=== PATIENT | male | born 1930 | race Caucasian/White ===

== ENCOUNTER 2017-06-30 02:49 | Inpatient (IN) | payer MEDICARE, OTHER ==
[2017-06-30] MEDS: ALBUTEROL 0.083% (NEB) 2.5 MG/3 ML AMP INH (02:52)
[2017-06-30] MEDS: IPRATROPIUM (NEB) 0.5 MG/2.5 ML AMP INH (02:52)
[2017-06-30 03:09] LABS: ADD MAN DIFF? NO
[2017-06-30 03:12] LABS: BASOPHILS % 0.2 % (0.0-2.0); EOSINOPHILS % 0.2 % (0.0-7.0); HEMATOCRIT 22.3 % (42.0-52.0); HEMOGLOBIN 7.2 g/dl (14.0-18.0); LYMPHOCYTES # 1.4 10^3/ul (0.8-2.9); LYMPHOCYTES % 7.5 % (15.0-51.0); MEAN CORPUSCULAR HEMOGLOBIN 28.7 pg (29.0-33.0); MEAN CORPUSCULAR HGB CONC 32.3 g/dl (32.0-37.0); MEAN CORPUSCULAR VOLUME 88.8 fl (82.0-101.0); MEAN PLATELET VOLUME 9.8 fl (7.4-10.4); MONOCYTE # 0.8 10^3/ul (0.3-0.9); MONOCYTES % 4.6 % (0.0-11.0); NEUTROPHIL # 15.4 10^3/ul (1.6-7.5); NEUTROPHILS % 85.1 % (39.0-77.0); PLATELET COUNT 185 10^3/UL (140-415); RED BLOOD COUNT 2.51 10^6/ul (4.70-6.10); RED CELL DISTRIBUTION WIDTH 16.7 % (11.5-14.5)
[2017-06-30 03:12] LABS: WHITE BLOOD COUNT 18.1 10^3/ul (4.8-10.8)
[2017-06-30 03:30] LABS: INR 1.05; PROTIME 13.8 Sec (11.9-14.9); PT RATIO 1.1
[2017-06-30 03:33] LABS: ALANINE AMINOTRANSFERASE 22 IU/L (13-69); ALBUMIN/GLOBULIN RATIO 1.21; ALKALINE PHOSPHATASE 68 IU/L (42-121); ANION GAP 19 (8-16); ASPARTATE AMINO TRANSFERASE 24 IU/L (15-46); BILIRUBIN,INDIRECT 0.1 mg/dl (0-1.1); BILIRUBIN,TOTAL 0.1 mg/dl (0.2-1.3); BLOOD UREA NITROGEN 48 mg/dl (7-20); CALCIUM 9.4 mg/dl (8.4-10.2); CARBON DIOXIDE 18 mmol/L (21-31); CHLORIDE 112 mmol/L (97-110); CREATININE 2.48 mg/dl (0.61-1.24); GLUCOSE 119 mg/dl (70-220); POTASSIUM 5.3 mmol/L (3.5-5.1); SODIUM 144 mmol/L (135-144); TOTAL PROTEIN 7.3 g/dl (6.1-8.1)
[2017-06-30 03:40] LABS: LACTIC ACID 1.3 mmol/L (0.5-2.0)
[2017-06-30 03:44] LABS: B-TYPE NATRIURETIC PEPTIDE 28200 PG/ML (0-450); TROPONIN-I 0.024 ng/ml (0.00-0.12)
[2017-06-30] MEDS: FUROSEMIDE 40 MG INJ IV (04:46)
[2017-06-30 05:00] LABS: ADD UMIC YES; UR ASCORBIC ACID NEGATIVE (NEGATIVE); UR BACTERIA FEW /HPF (NONE SEEN); UR BILIRUBIN (Dip) NEGATIVE (NEGATIVE); UR BLOOD (Dip) 3+ mg/dL (NEGATIVE); UR CLARITY SLIGHTLY CLOUDY (CLEAR); UR COLOR RED (YELLOW); UR GLUCOSE (Dip) NEGATIVE (NEGATIVE); UR KETONES (Dip) NEGATIVE (NEGATIVE); UR LEUKOCYTE ESTERASE (Dip) 3+ Leu/ul (NEGATIVE); UR NITRITE (Dip) NEGATIVE (NEGATIVE); UR RBC > 182 /HPF (0-5); UR SPECIFIC GRAVITY (Dip) 1.006 (1.003-1.030); UR TOTAL PROTEIN (Dip) 2+ mg/dl (NEGATIVE); UR UROBILINOGEN (Dip) NEGATIVE (NEGATIVE); UR WBC 127 /HPF (0-5)
[2017-06-30] MEDS ORDERED: LORAZEPAM 2 MG INJ (05:27)
[2017-06-30] MEDS ORDERED: NACL 0.9% 3 ML SYG IV (05:30)
[2017-06-30] MEDS ORDERED: ALBUTEROL/IPRATROPIUM (NEB) 3 ML AMP HHN (05:30)
[2017-06-30] MEDS ORDERED: morphine 2 MG INJ IV (05:30)
[2017-06-30] MEDS ORDERED: ONDANSETRON 4 MG INJ IV (05:30)
[2017-06-30] MEDS ORDERED: ACETAMINOPHEN 325 MG TAB PO (05:30)
[2017-06-30] MEDS ORDERED: NITROGLYCERIN (SL) 0.4 MG TAB SL (05:30)
[2017-06-30] MEDS: LORAZEPAM 2 MG INJ IV (05:43)
[2017-06-30] MEDS: CEFTRIAXONE 1 GM/50 ML (PMX) 50 ML IVPB ×2 (06:00→19:18)
[2017-06-30 06:15] LABS: TROPONIN-I 0.031 ng/ml (0.00-0.12)
[2017-06-30 06:29] LABS: CK-MB 0.83 ng/ml (0.0-2.4); CREATINE KINASE < 20 IU/L (23-200)
[2017-06-30 06:34] LABS: LACTIC ACID 2.9 mmol/L (0.5-2.0)
[2017-06-30 06:57] LABS: AADO2 Arterial 55.4 mmHg (7.0-24.0); Allen Test ACCEPTAB; Arterial Base Excess -7.8 mmol/L (-3.0-3); Arterial Blood Gas Oxygen Sat 90.4 mmHG (95.0-100.0); Arterial COHb 0 % (0.0-3.0); Arterial HCO3 16.2 mmol/L (22.0-26.0); Arterial MetHb 0.4 % (0.0-1.5); Arterial Total Hemglobin 7.9 g/dl (12.0-18.0); Arterial pCO2 27.1 mmhg (35-45); MODE ROOM AIR
[2017-06-30] MEDS: LEVOFLOXACIN 500MG/D5W (PMX) 100 ML IVPB (08:03)
[2017-06-30] MEDS: FUROSEMIDE 20 MG INJ IV ×2 (09:13→21:03)
[2017-06-30] MEDS: HEPARIN 5,000 UNIT/0.5 ML VIAL SC ×2 (09:20→21:00)
[2017-06-30 09:23] LABS: LACTIC ACID 1.5 mmol/L (0.5-2.0)
[2017-06-30 12:50] LABS: CREATINE KINASE < 20 IU/L (23-200)
[2017-06-30 12:52] LABS: LACTIC ACID 1.9 mmol/L (0.5-2.0)
[2017-06-30 13:00] LABS: TROPONIN-I 0.024 ng/ml (0.00-0.12)
[2017-06-30 13:03] LABS: CK-MB 0.67 ng/ml (0.0-2.4)
[2017-06-30 16:04] LABS: RETICULOCYTE COUNT # 0.107 X10^6 (0.020-0.110); RETICULOCYTE COUNT % 4.3 % (0.5-1.5)
[2017-06-30 16:04] LABS: RETICULOCYTE RBC 2.49
[2017-06-30 16:18] LABS: IRON 208 ug/dl (35-150)
[2017-06-30 16:28] LABS: % IRON SATURATION 69 % SAT (22-52); TOTAL IRON BINDING CAPACITY 301 ug/dl (241-421)
[2017-06-30 17:30] LABS: FOLATE > 20.0 ng/ml (2.8-20.0)
[2017-06-30] MEDS: NA BICARBONATE 650 MG TAB PO ×2 (19:22→21:02)
[2017-06-30] MEDS: METOPROLOL 25 MG TAB PO (21:03)
[2017-06-30 23:05] LABS: IMMEDIATE SPIN CROSSMATCH 1 1
[2017-07-01 02:18] LABS: SODIUM,URINE RANDOM 128 mmol/L (30-90)
[2017-07-01 07:51] LABS: AADO2 Arterial 108.5 mmHg (7.0-24.0); Allen Test ACCEPTAB; Arterial Base Excess -0.3 mmol/L (-3.0-3); Arterial Blood Gas Oxygen Sat 93.6 mmHG (95.0-100.0); Arterial COHb 0.1 % (0.0-3.0); Arterial Fraction of Oxyhgb 93.3 % (93.0-99.0); Arterial MetHb 0.2 % (0.0-1.5); Arterial Total Hemglobin 11.6 g/dl (12.0-18.0); Arterial pCO2 33.1 mmhg (35-45); MODE NASAL CANNULA; Site Left Radial
[2017-07-01 08:19] LABS: ADD MAN DIFF? NO
[2017-07-01 08:23] LABS: WHITE BLOOD COUNT 9.7 10^3/ul (4.8-10.8)
[2017-07-01 08:23] LABS: BASOPHIL # 0.1 10^3/ul (0.0-0.1); BASOPHILS % 0.6 % (0.0-2.0); EOSINOPHILS # 0.3 10^3/ul (0.0-0.5); HEMATOCRIT 24.9 % (42.0-52.0); HEMOGLOBIN 8.1 g/dl (14.0-18.0); LYMPHOCYTES # 0.8 10^3/ul (0.8-2.9); LYMPHOCYTES % 8.6 % (15.0-51.0); MEAN CORPUSCULAR HEMOGLOBIN 28.2 pg (29.0-33.0); MEAN CORPUSCULAR HGB CONC 32.5 g/dl (32.0-37.0); MEAN CORPUSCULAR VOLUME 86.8 fl (82.0-101.0); MONOCYTE # 0.6 10^3/ul (0.3-0.9); MONOCYTES % 6.2 % (0.0-11.0); NEUTROPHIL # 7.7 10^3/ul (1.6-7.5); NEUTROPHILS % 79.9 % (39.0-77.0); PLATELET COUNT 180 10^3/UL (140-415); RED BLOOD COUNT 2.87 10^6/ul (4.70-6.10); RED CELL DISTRIBUTION WIDTH 16.2 % (11.5-14.5)
[2017-07-01] MEDS: NA BICARBONATE 650 MG TAB PO (08:26)
[2017-07-01] MEDS: FUROSEMIDE 20 MG INJ IV ×2 (08:27→20:26)
[2017-07-01] MEDS: METOPROLOL 25 MG TAB PO (08:27)
[2017-07-01] MEDS: HEPARIN 5,000 UNIT/0.5 ML VIAL SC ×2 (08:27→20:32)
[2017-07-01 08:59] LABS: ALANINE AMINOTRANSFERASE 24 IU/L (13-69); ALBUMIN 3.4 g/dl (3.3-4.9); ALBUMIN/GLOBULIN RATIO 1.25; ALKALINE PHOSPHATASE 61 IU/L (42-121); ANION GAP 14 (8-16); ASPARTATE AMINO TRANSFERASE 19 IU/L (15-46); BILIRUBIN,INDIRECT 0.4 mg/dl (0-1.1); BILIRUBIN,TOTAL 0.4 mg/dl (0.2-1.3); BLOOD UREA NITROGEN 53 mg/dl (7-20); CALCIUM 8.9 mg/dl (8.4-10.2); CARBON DIOXIDE 26 mmol/L (21-31); CHLORIDE 110 mmol/L (97-110); CHOL/HDL RATIO 2.6 RATIO; CHOLESTEROL 182 mg/dl (100-200); CREATININE 2.19 mg/dl (0.61-1.24); GLUCOSE 94 mg/dl (70-220); HDL CHOLESTEROL 68 mg/dl (31-75); LDL CHOLESTEROL,CALCULATED 85 mg/dl; MAGNESIUM 1.6 mg/dl (1.7-2.5); SODIUM 145 mmol/L (135-144); TOTAL PROTEIN 6.1 g/dl (6.1-8.1); TRIGLYCERIDES 144 mg/dl (0-149)
[2017-07-01 08:59] LABS: TROPONIN-I 0.032 ng/ml (0.00-0.12)
[2017-07-01 09:01] LABS: PHOSPHORUS 3.7 mg/dl (2.5-4.9)
[2017-07-01 09:01] LABS: URIC ACID 8.3 mg/dl (3.1-7.9)
[2017-07-01 09:48] LABS: HEMOGLOBIN A1C 5.5 % (0-5.9)
[2017-07-01] MEDS: MAGNESIUM SULFATE 3 GM in DEXTROSE 5% 100 ML IVPB (10:16)
[2017-07-01] MEDS ORDERED: MAGNESIUM SULFATE 2 GM/50 ML 50 ML IVPB (12:30)
[2017-07-01] MEDS: CEFTRIAXONE 1 GM/50 ML (PMX) 50 ML IVPB (16:28)
[2017-07-01] MEDS: ALLOPURINOL 100 MG TAB PO (17:52)
[2017-07-01] MEDS: METOPROLOL (XL) 25 MG TAB PO (20:25)
[2017-07-02] MEDS: LEVOTHYROXINE 50 MCG TAB PO (05:52)
[2017-07-02 07:27] LABS: ADD MAN DIFF? NO
[2017-07-02 07:29] LABS: ABNORMAL IP MESSAGE 1; BASOPHIL # 0.1 10^3/ul (0.0-0.1); BASOPHILS % 0.7 % (0.0-2.0); EOSINOPHILS # 0.7 10^3/ul (0.0-0.5); EOSINOPHILS % 8.6 % (0.0-7.0); HEMATOCRIT 25.9 % (42.0-52.0); HEMOGLOBIN 8.6 g/dl (14.0-18.0); LYMPHOCYTES # 0.6 10^3/ul (0.8-2.9); LYMPHOCYTES % 7.7 % (15.0-51.0); MEAN CORPUSCULAR HEMOGLOBIN 29.3 pg (29.0-33.0); MEAN CORPUSCULAR HGB CONC 33.2 g/dl (32.0-37.0); MEAN CORPUSCULAR VOLUME 88.1 fl (82.0-101.0); MEAN PLATELET VOLUME 10.8 fl (7.4-10.4); MONOCYTE # 0.6 10^3/ul (0.3-0.9); MONOCYTES % 7.3 % (0.0-11.0); NEUTROPHIL # 5.6 10^3/ul (1.6-7.5); NEUTROPHILS % 73.7 % (39.0-77.0); PLATELET COUNT 144 10^3/UL (140-415); POSITIVE DIFF @See below; RED BLOOD COUNT 2.94 10^6/ul (4.70-6.10); RED CELL DISTRIBUTION WIDTH 16.6 % (11.5-14.5)
[2017-07-02 07:29] LABS: WHITE BLOOD COUNT 7.7 10^3/ul (4.8-10.8)
[2017-07-02 07:53] LABS: ALANINE AMINOTRANSFERASE 23 IU/L (13-69); ALBUMIN 3.5 g/dl (3.3-4.9); ALKALINE PHOSPHATASE 71 IU/L (42-121); ANION GAP 14 (8-16); ASPARTATE AMINO TRANSFERASE 16 IU/L (15-46); BILIRUBIN,INDIRECT 0.1 mg/dl (0-1.1); BILIRUBIN,TOTAL 0.1 mg/dl (0.2-1.3); BLOOD UREA NITROGEN 58 mg/dl (7-20); CALCIUM 8.7 mg/dl (8.4-10.2); CARBON DIOXIDE 27 mmol/L (21-31); CHLORIDE 110 mmol/L (97-110); CREATININE 2.56 mg/dl (0.61-1.24); GLUCOSE 112 mg/dl (70-220); MAGNESIUM 2.6 mg/dl (1.7-2.5); POTASSIUM 4.7 mmol/L (3.5-5.1); SODIUM 146 mmol/L (135-144); TOTAL PROTEIN 6.4 g/dl (6.1-8.1)
[2017-07-02] MEDS: FUROSEMIDE 20 MG INJ IV (08:11)
[2017-07-02] MEDS: ALLOPURINOL 100 MG TAB PO (08:12)
[2017-07-02] MEDS: METOPROLOL (XL) 25 MG TAB PO (08:12)
[2017-07-02] MEDS: HEPARIN 5,000 UNIT/0.5 ML VIAL SC (08:14)
== END 2017-07-02 17:11 | disposition home or self-care (01) | DRG 871 ==
LOC: E/R 02:49 → MS4 04:23
PROC: 30233N1 Transfusion of Nonautologous Red Blood Cells into Peripheral Vein, Percutaneous Approach (ICD-10-PCS; principal; 2017-06-30)
PROC: 5A09357 Assistance with Respiratory Ventilation, Less than 24 Consecutive Hours, Continuous Positive Airway Pressure (ICD-10-PCS; 2017-06-30)
DX: A41.9 Sepsis, unspecified organism (principal); I50.43 Acute on chronic combined systolic (congestive) and diastolic (congestive) heart failure; J18.9 Pneumonia, unspecified organism; J96.01 Acute respiratory failure with hypoxia; I13.0 Hypertensive heart and chronic kidney disease with heart failure and stage 1 through stage 4 chronic kidney disease, or unspecified chronic kidney disease; N39.0 Urinary tract infection, site not specified; E87.2 Acidosis; N17.9 Acute kidney failure, unspecified; E87.0 Hyperosmolality and hypernatremia; N18.9 Chronic kidney disease, unspecified; D63.1 Anemia in chronic kidney disease; I25.10 Atherosclerotic heart disease of native coronary artery without angina pectoris; Z95.1 Presence of aortocoronary bypass graft; J44.9 Chronic obstructive pulmonary disease, unspecified; E87.5 Hyperkalemia; I44.7 Left bundle-branch block, unspecified; Z85.51 Personal history of malignant neoplasm of bladder; E83.42 Hypomagnesemia; E03.9 Hypothyroidism, unspecified; R65.20 Severe sepsis without septic shock
CPT/HCPCS: 36415; 36430; 36600; 71045; 76775; 80053; 80061; 81001; 82550; 82553; 82607; 82746; 82803; 83036; 83540; 83605; 83735; 83880; 84100; 84300; 84443; 84484; 84560; 85025; 85045; 85610; 85730; 86850; 86900; 86901; 86920; 87040; 87086; 89190; 93005; 93306; 94660; 96374; 96375; 99285-25

== ENCOUNTER 2017-10-04 19:33 | Inpatient (IN) | payer MEDICARE, OTHER ==
[2017-10-04 20:11] LABS: ADD MAN DIFF? NO
[2017-10-04] MEDS: ONDANSETRON 4 MG INJ IV (20:11)
[2017-10-04] MEDS: SOD CHLORIDE 0.9% 1,000 ML IV (20:12)
[2017-10-04] MEDS: HYDROmorphONE 1 MG/ML SYG IV (20:12)
[2017-10-04 20:15] LABS: WHITE BLOOD COUNT 12.1 10^3/ul (4.8-10.8)
[2017-10-04 20:15] LABS: BASOPHILS % 0.2 % (0.0-2.0); EOSINOPHILS # 0.4 10^3/ul (0.0-0.5); HEMATOCRIT 24.8 % (42.0-52.0); HEMOGLOBIN 8.4 g/dl (14.0-18.0); IMMATURE GRANS #M 0.14 10^3/ul; IMMATURE GRANS % (M) 1.2 %; LYMPHOCYTES % 16.4 % (15.0-51.0); MEAN CORPUSCULAR HGB CONC 33.9 g/dl (32.0-37.0); MEAN CORPUSCULAR VOLUME 88.6 fl (82.0-101.0); MEAN PLATELET VOLUME 10.2 fl (7.4-10.4); MONOCYTE # 0.9 10^3/ul (0.3-0.9); MONOCYTES % 7.4 % (0.0-11.0); NEUTROPHIL # 8.7 10^3/ul (1.6-7.5); NEUTROPHILS % 71.8 % (39.0-77.0); PLATELET COUNT 161 10^3/UL (140-415); RED CELL DISTRIBUTION WIDTH 14.2 % (11.5-14.5)
[2017-10-04 20:34] LABS: ALANINE AMINOTRANSFERASE 14 IU/L (13-69); ALBUMIN 4.2 g/dl (3.3-4.9); ALKALINE PHOSPHATASE 70 IU/L (42-121); ANION GAP 16 (8-16); ASPARTATE AMINO TRANSFERASE 23 IU/L (15-46); BILIRUBIN,INDIRECT 0.1 mg/dl (0-1.1); BILIRUBIN,TOTAL 0.1 mg/dl (0.2-1.3); BLOOD UREA NITROGEN 45 mg/dl (7-20); CALCIUM 9.2 mg/dl (8.4-10.2); CARBON DIOXIDE 24 mmol/L (21-31); CHLORIDE 91 mmol/L (97-110); CREATININE 2.48 mg/dl (0.61-1.24); GLUCOSE 124 mg/dl (70-220); LIPASE 137 U/L (23-300); SODIUM 126 mmol/L (135-144); TOTAL PROTEIN 7.2 g/dl (6.1-8.1)
[2017-10-04 20:46] LABS: TROPONIN-I 0.025 ng/ml (0.000-0.120)
[2017-10-04] MEDS ORDERED: ONDANSETRON 4 MG INJ IV (22:00)
[2017-10-04] MEDS ORDERED: ACETAMINOPHEN 325 MG TAB PO (22:00)
[2017-10-04] MEDS: FUROSEMIDE 40 MG INJ IV (22:09)
[2017-10-04 22:13] LABS: B-TYPE NATRIURETIC PEPTIDE 27500 PG/ML (0-450)
[2017-10-04 22:14] LABS: ADD UMIC YES; UR ASCORBIC ACID NEGATIVE (NEGATIVE); UR BACTERIA FEW /HPF (NONE SEEN); UR BILIRUBIN (Dip) NEGATIVE (NEGATIVE); UR BLOOD (Dip) 3+ mg/dL (NEGATIVE); UR CLARITY SLIGHTLY CLOUDY (CLEAR); UR COLOR RED (YELLOW); UR GLUCOSE (Dip) NEGATIVE (NEGATIVE); UR KETONES (Dip) NEGATIVE (NEGATIVE); UR LEUKOCYTE ESTERASE (Dip) NEGATIVE Leu/ul (NEGATIVE); UR MUCUS FEW /HPF (NONE SEEN); UR NITRITE (Dip) NEGATIVE (NEGATIVE); UR RBC > 182 /HPF (0-5); UR SPECIFIC GRAVITY (Dip) 1.006 (1.003-1.030); UR TOTAL PROTEIN (Dip) 2+ mg/dl (NEGATIVE); UR UROBILINOGEN (Dip) NEGATIVE (NEGATIVE); UR WBC > 182 /HPF (0-5)
[2017-10-05] MEDS ORDERED: NACL 0.9% 3 ML SYG IV (06:30)
[2017-10-05] MEDS ORDERED: ALBUTEROL/IPRATROPIUM (NEB) 3 ML AMP HHN (06:30)
[2017-10-05] MEDS: HYDROCODONE/APAP (5/325) TAB PO (08:19)
[2017-10-05] MEDS: METOPROLOL (XL) 50 MG TAB PO (09:00)
[2017-10-05] MEDS: LEVOTHYROXINE 50 MCG TAB PO (09:09)
[2017-10-05 10:49] LABS: ADD MAN DIFF? NO
[2017-10-05 10:51] LABS: BASOPHILS % 0.3 % (0.0-2.0); EOSINOPHILS # 0.1 10^3/ul (0.0-0.5); EOSINOPHILS % 0.4 % (0.0-7.0); HEMATOCRIT 23.9 % (42.0-52.0); HEMOGLOBIN 8.1 g/dl (14.0-18.0); IMMATURE GRANS #M 0.12 10^3/ul; IMMATURE GRANS % (M) 0.9 %; LYMPHOCYTES # 0.7 10^3/ul (0.8-2.9); LYMPHOCYTES % 4.8 % (15.0-51.0); MEAN CORPUSCULAR HEMOGLOBIN 30.3 pg (29.0-33.0); MEAN CORPUSCULAR HGB CONC 33.9 g/dl (32.0-37.0); MEAN CORPUSCULAR VOLUME 89.5 fl (82.0-101.0); MONOCYTE # 0.8 10^3/ul (0.3-0.9); NEUTROPHILS % 87.6 % (39.0-77.0); PLATELET COUNT 131 10^3/UL (140-415); RED BLOOD COUNT 2.67 10^6/ul (4.70-6.10)
[2017-10-05 10:51] LABS: WHITE BLOOD COUNT 13.7 10^3/ul (4.8-10.8)
[2017-10-05 11:10] LABS: ALANINE AMINOTRANSFERASE 20 IU/L (13-69); ALBUMIN 3.7 g/dl (3.3-4.9); ALBUMIN/GLOBULIN RATIO 1.23; ALKALINE PHOSPHATASE 63 IU/L (42-121); ANION GAP 16 (8-16); ASPARTATE AMINO TRANSFERASE 20 IU/L (15-46); BILIRUBIN,INDIRECT 0.4 mg/dl (0-1.1); BILIRUBIN,TOTAL 0.4 mg/dl (0.2-1.3); BLOOD UREA NITROGEN 42 mg/dl (7-20); CALCIUM 8.8 mg/dl (8.4-10.2); CARBON DIOXIDE 23 mmol/L (21-31); CHLORIDE 94 mmol/L (97-110); CREATINE KINASE 23 IU/L (23-200); CREATININE 2.26 mg/dl (0.61-1.24); GLUCOSE 125 mg/dl (70-220); MAGNESIUM 1.9 mg/dl (1.7-2.5); POTASSIUM 4.7 mmol/L (3.5-5.1); SODIUM 128 mmol/L (135-144); TOTAL PROTEIN 6.7 g/dl (6.1-8.1)
[2017-10-05 11:11] LABS: INR 0.93; PROTIME 12.5 Sec (11.9-14.9)
[2017-10-05 11:12] LABS: PARTIAL THROMBOPLASTIN TIME 27.5 Sec (25.0-35.0)
[2017-10-05 11:22] LABS: CK INDEX 3.4; CK-MB 0.79 ng/ml (0.0-2.4); TROPONIN-I 0.029 ng/ml (0.000-0.120)
[2017-10-05] MEDS: SODIUM CHLORIDE 1 GM TAB PO ×3 (13:00→21:25)
[2017-10-05] MEDS: ACETAMINOPHEN 325 MG TAB PO (13:17)
[2017-10-05] MEDS: SERTRALINE 50 MG TAB PO (13:17)
[2017-10-05] MEDS: SOD CHLORIDE 0.9% 1,000 ML IV (13:18)
[2017-10-05] MEDS: HEPARIN 5,000 UNIT/0.5 ML VIAL SC ×2 (13:28→21:57)
[2017-10-05 14:15] LABS: AADO2 Arterial 588.1 mmHg (7.0-24.0); Allen Test ACCEPTAB; Arterial Base Excess -3.3 mmol/L (-3.0-3); Arterial Blood Gas Oxygen Sat 95.9 mmHG (95.0-100.0); Arterial COHb 0.1 % (0.0-3.0); Arterial Fraction of Oxyhgb 95.7 % (93.0-99.0); Arterial HCO3 21.5 mmol/L (22.0-26.0); Arterial MetHb 0.1 % (0.0-1.5); Arterial pCO2 37.2 mmhg (35-45); MODE MASK - NRB; Site Right Radial
[2017-10-05 14:38] LABS: CREATINE KINASE 24 IU/L (23-200)
[2017-10-05 14:51] LABS: CK INDEX 3.4; CK-MB 0.82 ng/ml (0.0-2.4); TROPONIN-I 0.031 ng/ml (0.000-0.120)
[2017-10-05] MEDS: TRIMETHOPRIM/SULFAMETHOXAZOLE 10 ML in DEXTROSE 5% 250 ML IVPB (15:05)
[2017-10-05 15:26] LABS: SODIUM,URINE RANDOM 64 mmol/L (30-90)
[2017-10-05] MEDS: traMADol 50 MG TAB PO (15:30)
[2017-10-05] MEDS: SUCRALFATE 1 GM TAB PO ×3 (15:30→21:25)
[2017-10-05] MEDS: FUROSEMIDE 40 MG INJ IV (17:40)
[2017-10-05 19:28] LABS: OSMOLALITY 279 mOsm/kg (280-295)
[2017-10-05 19:29] LABS: OSMOLALITY,URINE 248 mOsm/kg (250-1200)
[2017-10-05] MEDS ORDERED: SPECIAL NON-STANDARD MEDICATION PO (21:00)
[2017-10-05] MEDS: ATORVASTATIN 20 MG TAB PO (21:25)
[2017-10-06] MEDS: ACETAMINOPHEN/CODEINE #3 TAB PO ×3 (02:40→20:47)
[2017-10-06] MEDS: TRIMETHOPRIM/SULFAMETHOXAZOLE 10 ML in DEXTROSE 5% 250 ML IVPB ×2 (03:37→14:20)
[2017-10-06 06:14] LABS: ADD MAN DIFF? NO
[2017-10-06 06:21] LABS: BASOPHIL # 0.1 10^3/ul (0.0-0.1); BASOPHILS % 0.4 % (0.0-2.0); EOSINOPHILS # 0.2 10^3/ul (0.0-0.5); EOSINOPHILS % 1.6 % (0.0-7.0); HEMOGLOBIN 7.6 g/dl (14.0-18.0); IMMATURE GRANS #M 0.08 10^3/ul; IMMATURE GRANS % (M) 0.7 %; LYMPHOCYTES # 1.2 10^3/ul (0.8-2.9); LYMPHOCYTES % 10.2 % (15.0-51.0); MEAN CORPUSCULAR HEMOGLOBIN 29.3 pg (29.0-33.0); MEAN CORPUSCULAR VOLUME 88.8 fl (82.0-101.0); MEAN PLATELET VOLUME 10.3 fl (7.4-10.4); MONOCYTE # 0.8 10^3/ul (0.3-0.9); MONOCYTES % 6.4 % (0.0-11.0); NEUTROPHIL # 9.8 10^3/ul (1.6-7.5); NEUTROPHILS % 80.7 % (39.0-77.0); PLATELET COUNT 121 10^3/UL (140-415); RED BLOOD COUNT 2.59 10^6/ul (4.70-6.10)
[2017-10-06 06:21] LABS: WHITE BLOOD COUNT 12.1 10^3/ul (4.8-10.8)
[2017-10-06] MEDS: LEVOTHYROXINE 50 MCG TAB PO (06:26)
[2017-10-06] MEDS: PANTOPRAZOLE (EC) 40 MG TAB PO (06:26)
[2017-10-06] MEDS: FUROSEMIDE 40 MG INJ IV ×2 (06:26→17:32)
[2017-10-06 06:52] LABS: ANION GAP 15 (8-16); BLOOD UREA NITROGEN 38 mg/dl (7-20); CALCIUM 8.6 mg/dl (8.4-10.2); CARBON DIOXIDE 24 mmol/L (21-31); CHLORIDE 96 mmol/L (97-110); CREATININE 2.31 mg/dl (0.61-1.24); GLUCOSE 123 mg/dl (70-220); MAGNESIUM 1.9 mg/dl (1.7-2.5); PHOSPHORUS 3.9 mg/dl (2.5-4.9); POTASSIUM 4.2 mmol/L (3.5-5.1); SODIUM 131 mmol/L (135-144)
[2017-10-06] MEDS: SERTRALINE 50 MG TAB PO (09:00)
[2017-10-06] MEDS: SODIUM CHLORIDE 1 GM TAB PO (09:01)
[2017-10-06] MEDS: AMINOCAPROIC ACID 500 MG TABLET PO ×2 (09:01→20:47)
[2017-10-06] MEDS: METOPROLOL (XL) 50 MG TAB PO (09:01)
[2017-10-06] MEDS: SUCRALFATE 1 GM TAB PO ×4 (09:01→20:46)
[2017-10-06] MEDS: HEPARIN 5,000 UNIT/0.5 ML VIAL SC ×2 (09:25→21:52)
[2017-10-06] MEDS: PIPER-TAZO 2.25 GM (PMX) 50 ML IVPB (17:32)
[2017-10-06] MEDS ORDERED: PIPER-TAZO 3.375 GM IV (PMX) 100 ML IVPB (18:00)
[2017-10-06] MEDS: ATORVASTATIN 20 MG TAB PO (20:47)
[2017-10-07] MEDS: PIPER-TAZO 2.25 GM (PMX) 50 ML IVPB ×2 (00:34→08:55)
[2017-10-07] MEDS: HALOPERIDOL 5 MG INJ IM ×2 (02:36→11:18)
[2017-10-07] MEDS: ACETAMINOPHEN/CODEINE #3 TAB PO (04:37)
[2017-10-07] MEDS: FUROSEMIDE 40 MG INJ IV ×2 (05:29→18:02)
[2017-10-07 05:51] LABS: ADD MAN DIFF? NO
[2017-10-07 05:59] LABS: BASOPHIL # 0.1 10^3/ul (0.0-0.1); BASOPHILS % 0.6 % (0.0-2.0); EOSINOPHILS # 0.1 10^3/ul (0.0-0.5); EOSINOPHILS % 0.6 % (0.0-7.0); HEMATOCRIT 22.2 % (42.0-52.0); HEMOGLOBIN 7.3 g/dl (14.0-18.0); LYMPHOCYTES # 1.1 10^3/ul (0.8-2.9); LYMPHOCYTES % 9.2 % (15.0-51.0); MEAN CORPUSCULAR HEMOGLOBIN 29.3 pg (29.0-33.0); MEAN CORPUSCULAR HGB CONC 32.9 g/dl (32.0-37.0); MEAN CORPUSCULAR VOLUME 89.2 fl (82.0-101.0); MEAN PLATELET VOLUME 10.2 fl (7.4-10.4); MONOCYTE # 0.8 10^3/ul (0.3-0.9); MONOCYTES % 6.1 % (0.0-11.0); NEUTROPHIL # 10.3 10^3/ul (1.6-7.5); NEUTROPHILS % 82.9 % (39.0-77.0); PLATELET COUNT 135 10^3/UL (140-415); RED BLOOD COUNT 2.49 10^6/ul (4.70-6.10); RED CELL DISTRIBUTION WIDTH 14.1 % (11.5-14.5)
[2017-10-07 05:59] LABS: WHITE BLOOD COUNT 12.4 10^3/ul (4.8-10.8)
[2017-10-07] MEDS: PANTOPRAZOLE (EC) 40 MG TAB PO (06:00)
[2017-10-07 06:30] LABS: ANION GAP 18 (8-16); BLOOD UREA NITROGEN 39 mg/dl (7-20); CALCIUM 8.5 mg/dl (8.4-10.2); CARBON DIOXIDE 21 mmol/L (21-31); CHLORIDE 98 mmol/L (97-110); CREATININE 2.94 mg/dl (0.61-1.24); GLUCOSE 146 mg/dl (70-220); POTASSIUM 4.1 mmol/L (3.5-5.1); SODIUM 133 mmol/L (135-144)
[2017-10-07] MEDS: AMINOCAPROIC ACID 500 MG TABLET PO ×2 (08:54→20:59)
[2017-10-07] MEDS: METOPROLOL (XL) 50 MG TAB PO (08:54)
[2017-10-07] MEDS: LEVOTHYROXINE 50 MCG TAB PO (08:54)
[2017-10-07] MEDS: SUCRALFATE 1 GM TAB PO ×4 (08:55→20:59)
[2017-10-07] MEDS: SERTRALINE 50 MG TAB PO (08:55)
[2017-10-07] MEDS: HEPARIN 5,000 UNIT/0.5 ML VIAL SC ×2 (10:08→21:42)
[2017-10-07] MEDS: morphine 2 MG INJ IV ×2 (11:54→11:55)
[2017-10-07] MEDS: LORAZEPAM 2 MG INJ IV (13:00)
[2017-10-07] MEDS: CEFTRIAXONE 1 GM/50 ML (PMX) 50 ML IVPB (16:20)
[2017-10-07] MEDS: METOLAZONE 5 MG TAB PO (18:02)
[2017-10-07] MEDS: ATORVASTATIN 20 MG TAB PO (20:59)
[2017-10-08] MEDS: PANTOPRAZOLE (EC) 40 MG TAB PO (05:53)
[2017-10-08] MEDS: LEVOTHYROXINE 50 MCG TAB PO (05:53)
[2017-10-08] MEDS: FUROSEMIDE 40 MG INJ IV ×2 (05:54→17:42)
[2017-10-08] MEDS: SUCRALFATE 1 GM TAB PO ×4 (08:49→20:28)
[2017-10-08] MEDS: AMINOCAPROIC ACID 500 MG TABLET PO ×2 (08:49→20:28)
[2017-10-08] MEDS: FERROUS SULFATE (EC) 325 MG TAB PO (08:49)
[2017-10-08] MEDS: MULTIVITAMINS THERAPEUTIC TAB PO (08:49)
[2017-10-08] MEDS: SERTRALINE 50 MG TAB PO (08:49)
[2017-10-08] MEDS: METOPROLOL (XL) 50 MG TAB PO (08:50)
[2017-10-08] MEDS: HEPARIN 5,000 UNIT/0.5 ML VIAL SC ×2 (09:06→21:37)
[2017-10-08] MEDS: ACETAMINOPHEN 325 MG TAB PO ×2 (10:18→20:28)
[2017-10-08] MEDS: SOD CHLORIDE 0.9% 250 ML IV* (13:48)
[2017-10-08] MEDS: CEFTRIAXONE 1 GM/50 ML (PMX) 50 ML IVPB (14:26)
[2017-10-08 16:35] LABS: IMMEDIATE SPIN CROSSMATCH 1 1
[2017-10-08] MEDS: ATORVASTATIN 20 MG TAB PO (20:29)
[2017-10-08 21:24] LABS: ADD MAN DIFF? NO
[2017-10-08 21:26] LABS: BASOPHILS % 0.2 % (0.0-2.0); EOSINOPHILS # 0.2 10^3/ul (0.0-0.5); EOSINOPHILS % 1.1 % (0.0-7.0); HEMOGLOBIN 9.2 g/dl (14.0-18.0); LYMPHOCYTES # 0.8 10^3/ul (0.8-2.9); LYMPHOCYTES % 5.6 % (15.0-51.0); MEAN CORPUSCULAR HEMOGLOBIN 30.7 pg (29.0-33.0); MEAN CORPUSCULAR HGB CONC 34.1 g/dl (32.0-37.0); MEAN PLATELET VOLUME 9.3 fl (7.4-10.4); MONOCYTE # 0.7 10^3/ul (0.3-0.9); MONOCYTES % 4.4 % (0.0-11.0); NEUTROPHIL # 13.3 10^3/ul (1.6-7.5); NEUTROPHILS % 88.2 % (39.0-77.0); PLATELET COUNT 197 10^3/UL (140-415); RED CELL DISTRIBUTION WIDTH 14.1 % (11.5-14.5)
[2017-10-08 21:26] LABS: WHITE BLOOD COUNT 15.1 10^3/ul (4.8-10.8)
[2017-10-08 21:47] LABS: ANION GAP 19 (8-16); BLOOD UREA NITROGEN 49 mg/dl (7-20); CALCIUM 9.2 mg/dl (8.4-10.2); CARBON DIOXIDE 25 mmol/L (21-31); CHLORIDE 92 mmol/L (97-110); CREATININE 3.83 mg/dl (0.61-1.24); GLUCOSE 129 mg/dl (70-220); POTASSIUM 4.5 mmol/L (3.5-5.1); SODIUM 131 mmol/L (135-144)
[2017-10-09] MEDS: ONDANSETRON 4 MG INJ IV (03:11)
[2017-10-09] MEDS: ACETAMINOPHEN/CODEINE #3 TAB PO ×3 (03:12→20:41)
[2017-10-09] MEDS: LEVOTHYROXINE 50 MCG TAB PO (06:42)
[2017-10-09] MEDS: FUROSEMIDE 40 MG INJ IV ×2 (06:42→17:50)
[2017-10-09] MEDS: PANTOPRAZOLE (EC) 40 MG TAB PO (06:42)
[2017-10-09] MEDS: SUCRALFATE 1 GM TAB PO ×4 (08:46→20:41)
[2017-10-09] MEDS: FERROUS SULFATE (EC) 325 MG TAB PO (08:46)
[2017-10-09] MEDS: AMINOCAPROIC ACID 500 MG TABLET PO ×2 (08:46→20:41)
[2017-10-09] MEDS: MULTIVITAMINS THERAPEUTIC TAB PO (08:47)
[2017-10-09] MEDS: METOPROLOL (XL) 50 MG TAB PO (08:47)
[2017-10-09] MEDS: SERTRALINE 50 MG TAB PO (08:47)
[2017-10-09] MEDS: HEPARIN 5,000 UNIT/0.5 ML VIAL SC ×2 (08:55→20:49)
[2017-10-09] MEDS: CEFTRIAXONE 1 GM/50 ML (PMX) 50 ML IVPB (15:12)
[2017-10-09] MEDS: ATORVASTATIN 20 MG TAB PO (20:41)
[2017-10-09] MEDS: METOLAZONE 5 MG TAB PO (20:53)
[2017-10-10] MEDS: FUROSEMIDE 40 MG INJ IV ×2 (05:14→17:13)
[2017-10-10] MEDS: PANTOPRAZOLE (EC) 40 MG TAB PO (05:15)
[2017-10-10] MEDS: LEVOTHYROXINE 50 MCG TAB PO (06:01)
[2017-10-10] MEDS: FERROUS SULFATE (EC) 325 MG TAB PO (08:16)
[2017-10-10] MEDS: METOPROLOL (XL) 50 MG TAB PO (08:16)
[2017-10-10] MEDS: SERTRALINE 50 MG TAB PO (08:16)
[2017-10-10] MEDS: MULTIVITAMINS THERAPEUTIC TAB PO (08:16)
[2017-10-10] MEDS: AMINOCAPROIC ACID 500 MG TABLET PO ×2 (08:16→21:20)
[2017-10-10] MEDS: SUCRALFATE 1 GM TAB PO ×4 (08:16→21:20)
[2017-10-10] MEDS: METOLAZONE 5 MG TAB PO (08:17)
[2017-10-10] MEDS: HEPARIN 5,000 UNIT/0.5 ML VIAL SC ×2 (08:26→21:25)
[2017-10-10] MEDS: CEFTRIAXONE 1 GM/50 ML (PMX) 50 ML IVPB ×2 (15:00→17:13)
[2017-10-10] MEDS: ATORVASTATIN 20 MG TAB PO (21:19)
[2017-10-11] MEDS: LEVOTHYROXINE 50 MCG TAB PO (06:21)
[2017-10-11] MEDS: PANTOPRAZOLE (EC) 40 MG TAB PO (06:21)
[2017-10-11] MEDS: FUROSEMIDE 40 MG INJ IV ×2 (06:25→17:48)
[2017-10-11] MEDS: AMINOCAPROIC ACID 500 MG TABLET PO ×2 (08:50→20:55)
[2017-10-11] MEDS: MULTIVITAMINS THERAPEUTIC TAB PO (08:51)
[2017-10-11] MEDS: SUCRALFATE 1 GM TAB PO ×4 (08:51→20:56)
[2017-10-11] MEDS: FERROUS SULFATE (EC) 325 MG TAB PO (08:51)
[2017-10-11] MEDS: METOLAZONE 5 MG TAB PO (08:51)
[2017-10-11] MEDS: METOPROLOL (XL) 50 MG TAB PO (08:52)
[2017-10-11] MEDS: SERTRALINE 50 MG TAB PO (08:52)
[2017-10-11] MEDS: HEPARIN 5,000 UNIT/0.5 ML VIAL SC ×2 (08:53→21:00)
[2017-10-11] MEDS: ACETAMINOPHEN/CODEINE #3 TAB PO (11:03)
[2017-10-11] MEDS: CEFTRIAXONE 1 GM/50 ML (PMX) 50 ML IVPB (15:06)
[2017-10-11] MEDS: ATORVASTATIN 20 MG TAB PO (20:56)
[2017-10-12 05:46] LABS: ADD MAN DIFF? NO
[2017-10-12 05:57] LABS: WHITE BLOOD COUNT 10.1 10^3/ul (4.8-10.8)
[2017-10-12 05:57] LABS: BASOPHILS % 0.4 % (0.0-2.0); EOSINOPHILS # 0.3 10^3/ul (0.0-0.5); EOSINOPHILS % 2.9 % (0.0-7.0); HEMATOCRIT 29.5 % (42.0-52.0); HEMOGLOBIN 9.8 g/dl (14.0-18.0); LYMPHOCYTES # 1.2 10^3/ul (0.8-2.9); LYMPHOCYTES % 11.5 % (15.0-51.0); MEAN CORPUSCULAR HEMOGLOBIN 30.2 pg (29.0-33.0); MEAN CORPUSCULAR HGB CONC 33.2 g/dl (32.0-37.0); MEAN CORPUSCULAR VOLUME 90.8 fl (82.0-101.0); MONOCYTE # 0.7 10^3/ul (0.3-0.9); MONOCYTES % 6.5 % (0.0-11.0); NEUTROPHIL # 7.9 10^3/ul (1.6-7.5); PLATELET COUNT 230 10^3/UL (140-415); RED BLOOD COUNT 3.25 10^6/ul (4.70-6.10); RED CELL DISTRIBUTION WIDTH 13.5 % (11.5-14.5)
[2017-10-12] MEDS: FUROSEMIDE 40 MG INJ IV ×2 (06:35→17:27)
[2017-10-12] MEDS: PANTOPRAZOLE (EC) 40 MG TAB PO (06:35)
[2017-10-12] MEDS: LEVOTHYROXINE 50 MCG TAB PO (06:35)
[2017-10-12 06:49] LABS: ALBUMIN 3.8 g/dl (3.3-4.9); ANION GAP 18 (8-16); BLOOD UREA NITROGEN 57 mg/dl (7-20); CALCIUM 9.6 mg/dl (8.4-10.2); CARBON DIOXIDE 30 mmol/L (21-31); CHLORIDE 93 mmol/L (97-110); CREATININE 2.58 mg/dl (0.61-1.24); GLUCOSE 107 mg/dl (70-220); MAGNESIUM 1.9 mg/dl (1.7-2.5); PHOSPHORUS 4.5 mg/dl (2.5-4.9); POTASSIUM 3.3 mmol/L (3.5-5.1); SODIUM 138 mmol/L (135-144)
[2017-10-12] MEDS: FERROUS SULFATE (EC) 325 MG TAB PO (08:56)
[2017-10-12] MEDS: MULTIVITAMINS THERAPEUTIC TAB PO (08:56)
[2017-10-12] MEDS: METOPROLOL (XL) 50 MG TAB PO (08:56)
[2017-10-12] MEDS: METOLAZONE 5 MG TAB PO (08:57)
[2017-10-12] MEDS: SERTRALINE 50 MG TAB PO (08:57)
[2017-10-12] MEDS: SUCRALFATE 1 GM TAB PO ×4 (08:57→21:09)
[2017-10-12] MEDS: HEPARIN 5,000 UNIT/0.5 ML VIAL SC ×2 (10:00→21:00)
[2017-10-12] MEDS: AMINOCAPROIC ACID 500 MG TABLET PO ×3 (10:00→23:38)
[2017-10-12] MEDS: POTASSIUM CHLORIDE 100 ML IVPB ×2 (10:41→12:44)
[2017-10-12] MEDS: CEFTRIAXONE 1 GM/50 ML (PMX) 50 ML IVPB (15:05)
[2017-10-12] MEDS: ACETAMINOPHEN/CODEINE #3 TAB PO (17:37)
[2017-10-12] MEDS: ATORVASTATIN 20 MG TAB PO (21:09)
[2017-10-13] MEDS: PANTOPRAZOLE (EC) 40 MG TAB PO (05:58)
[2017-10-13] MEDS: LEVOTHYROXINE 50 MCG TAB PO (05:58)
[2017-10-13] MEDS: FUROSEMIDE 20 MG TAB PO ×2 (05:59→17:21)
[2017-10-13 06:14] LABS: ADD MAN DIFF? NO
[2017-10-13 06:21] LABS: BASOPHIL # 0.1 10^3/ul (0.0-0.1); BASOPHILS % 0.6 % (0.0-2.0); EOSINOPHILS # 0.2 10^3/ul (0.0-0.5); EOSINOPHILS % 2.3 % (0.0-7.0); HEMATOCRIT 28.9 % (42.0-52.0); HEMOGLOBIN 9.4 g/dl (14.0-18.0); LYMPHOCYTES # 1.1 10^3/ul (0.8-2.9); LYMPHOCYTES % 11.9 % (15.0-51.0); MEAN CORPUSCULAR HEMOGLOBIN 29.7 pg (29.0-33.0); MEAN CORPUSCULAR HGB CONC 32.5 g/dl (32.0-37.0); MEAN CORPUSCULAR VOLUME 91.2 fl (82.0-101.0); MEAN PLATELET VOLUME 9.9 fl (7.4-10.4); MONOCYTE # 0.6 10^3/ul (0.3-0.9); MONOCYTES % 6.9 % (0.0-11.0); NEUTROPHIL # 7.2 10^3/ul (1.6-7.5); NEUTROPHILS % 77.3 % (39.0-77.0); PLATELET COUNT 221 10^3/UL (140-415); RED BLOOD COUNT 3.17 10^6/ul (4.70-6.10)
[2017-10-13 06:21] LABS: WHITE BLOOD COUNT 9.3 10^3/ul (4.8-10.8)
[2017-10-13 06:49] LABS: ALBUMIN 3.8 g/dl (3.3-4.9); ANION GAP 16 (8-16); BLOOD UREA NITROGEN 56 mg/dl (7-20); CALCIUM 9.4 mg/dl (8.4-10.2); CARBON DIOXIDE 32 mmol/L (21-31); CHLORIDE 92 mmol/L (97-110); GLUCOSE 103 mg/dl (70-220); MAGNESIUM 1.9 mg/dl (1.7-2.5); PHOSPHORUS 4.4 mg/dl (2.5-4.9); POTASSIUM 3.3 mmol/L (3.5-5.1); SODIUM 137 mmol/L (135-144)
[2017-10-13] MEDS: METOLAZONE 5 MG TAB PO (08:23)
[2017-10-13] MEDS: AMINOCAPROIC ACID 500 MG TABLET PO ×2 (08:23→21:00)
[2017-10-13] MEDS: SERTRALINE 50 MG TAB PO (08:23)
[2017-10-13] MEDS: FERROUS SULFATE (EC) 325 MG TAB PO (08:23)
[2017-10-13] MEDS: MULTIVITAMINS THERAPEUTIC TAB PO (08:23)
[2017-10-13] MEDS: SUCRALFATE 1 GM TAB PO ×4 (08:23→21:00)
[2017-10-13] MEDS: METOPROLOL (XL) 50 MG TAB PO (08:24)
[2017-10-13] MEDS: HEPARIN 5,000 UNIT/0.5 ML VIAL SC ×2 (08:27→21:46)
[2017-10-13] MEDS: POTASSIUM CHLORIDE 20 MEQ POWDER FOR ORAL SOLN PO (09:24)
[2017-10-13] MEDS: CEFTRIAXONE 1 GM/50 ML (PMX) 50 ML IVPB (14:17)
[2017-10-13] MEDS: ATORVASTATIN 20 MG TAB PO (21:00)
[2017-10-14] MEDS: LEVOTHYROXINE 50 MCG TAB PO (06:04)
[2017-10-14] MEDS: PANTOPRAZOLE (EC) 40 MG TAB PO (06:04)
[2017-10-14] MEDS: FUROSEMIDE 20 MG TAB PO ×2 (06:07→17:37)
[2017-10-14 06:32] LABS: ADD MAN DIFF? NO
[2017-10-14 06:45] LABS: WHITE BLOOD COUNT 8.8 10^3/ul (4.8-10.8)
[2017-10-14 06:46] LABS: BASOPHIL # 0.1 10^3/ul (0.0-0.1); BASOPHILS % 0.7 % (0.0-2.0); EOSINOPHILS # 0.2 10^3/ul (0.0-0.5); EOSINOPHILS % 2.5 % (0.0-7.0); HEMATOCRIT 28.2 % (42.0-52.0); HEMOGLOBIN 9.1 g/dl (14.0-18.0); LYMPHOCYTES # 1.1 10^3/ul (0.8-2.9); LYMPHOCYTES % 12.4 % (15.0-51.0); MEAN CORPUSCULAR HEMOGLOBIN 29.3 pg (29.0-33.0); MEAN CORPUSCULAR HGB CONC 32.3 g/dl (32.0-37.0); MEAN CORPUSCULAR VOLUME 90.7 fl (82.0-101.0); MEAN PLATELET VOLUME 10.1 fl (7.4-10.4); MONOCYTE # 0.7 10^3/ul (0.3-0.9); MONOCYTES % 7.5 % (0.0-11.0); NEUTROPHIL # 6.7 10^3/ul (1.6-7.5); NEUTROPHILS % 75.8 % (39.0-77.0); PLATELET COUNT 231 10^3/UL (140-415); RED BLOOD COUNT 3.11 10^6/ul (4.70-6.10); RED CELL DISTRIBUTION WIDTH 13.8 % (11.5-14.5)
[2017-10-14 07:04] LABS: ALBUMIN 3.6 g/dl (3.3-4.9); ANION GAP 16 (8-16); BLOOD UREA NITROGEN 58 mg/dl (7-20); CALCIUM 9.7 mg/dl (8.4-10.2); CARBON DIOXIDE 30 mmol/L (21-31); CHLORIDE 97 mmol/L (97-110); CREATININE 2.28 mg/dl (0.61-1.24); GLUCOSE 109 mg/dl (70-220); PHOSPHORUS 4.8 mg/dl (2.5-4.9); POTASSIUM 3.7 mmol/L (3.5-5.1); SODIUM 139 mmol/L (135-144)
[2017-10-14] MEDS: SUCRALFATE 1 GM TAB PO ×3 (08:09→17:37)
[2017-10-14] MEDS: MULTIVITAMINS THERAPEUTIC TAB PO (08:09)
[2017-10-14] MEDS: METOPROLOL (XL) 50 MG TAB PO (08:09)
[2017-10-14] MEDS: METOLAZONE 5 MG TAB PO (08:09)
[2017-10-14] MEDS: SERTRALINE 50 MG TAB PO (08:09)
[2017-10-14] MEDS: FERROUS SULFATE (EC) 325 MG TAB PO (08:10)
[2017-10-14] MEDS: AMINOCAPROIC ACID 500 MG TABLET PO (08:10)
[2017-10-14] MEDS: HEPARIN 5,000 UNIT/0.5 ML VIAL SC (08:11)
== END 2017-10-14 18:55 | disposition home health service (06) | DRG 391 ==
LOC: 6WM 10-10 01:30 → E/R 19:33 → 6WM 21:47
PROVIDERS: Internal Medicine
PROC: 30233N1 Transfusion of Nonautologous Red Blood Cells into Peripheral Vein, Percutaneous Approach (ICD-10-PCS; principal; 2017-10-08)
DX: R10.13 Epigastric pain (principal); I50.23 Acute on chronic systolic (congestive) heart failure; J96.91 Respiratory failure, unspecified with hypoxia; J18.9 Pneumonia, unspecified organism; N39.0 Urinary tract infection, site not specified; F05 Delirium due to known physiological condition; D62 Acute posthemorrhagic anemia; E87.1 Hypo-osmolality and hyponatremia; B95.5 Unspecified streptococcus as the cause of diseases classified elsewhere; F03.90 Unspecified dementia, unspecified severity, without behavioral disturbance, psychotic disturbance, mood disturbance, and anxiety; Z95.1 Presence of aortocoronary bypass graft; Z85.028 Personal history of other malignant neoplasm of stomach; C67.9 Malignant neoplasm of bladder, unspecified; R31.9 Hematuria, unspecified; D63.8 Anemia in other chronic diseases classified elsewhere; K52.9 Noninfective gastroenteritis and colitis, unspecified; I71.4 Abdominal aortic aneurysm, without rupture; E03.9 Hypothyroidism, unspecified; Z66 Do not resuscitate
CPT/HCPCS: 36415; 36430; 36600; 71045; 74176; 76705; 80048; 80053; 80069; 81001; 82550; 82553; 82803; 83690; 83735; 83880; 83930; 83935; 84100; 84300; 84484; 85025; 85610; 85730; 86850; 86900; 86901; 86920; 87086; 93005; 96374; 96375; 97110; 97116; 97161; 97530; 99285-25